=== PATIENT | male | born 1935 | race Caucasian/White ===

== ENCOUNTER → 2019-10-18 | Outpatient (CLI) | payer OTHER ==
[~2019-10-18] MED LIST: ADULT LOW DOSE81 MG PO; ALLER-TEC D 5-1 EACH; ALLER-TEC D 5-1 EACH PO; ALLERTEC; ALLOPURINOL 30300 M2; APAP500 PO; ASPIRIN325 PO; B-COMPLEX-VITA1 EACH PO; COLACE100 MG OR; COZAAR 25 MG TA25 M1 PO; FISHOIL PO; HYDROCODON-ACE1 EAC7 OR; LIVALO4 MG PO; LOVASTAT40 PO; MAPAP500 MG; METFORMIN HCL500 MG PO; METOCLOPRAMIDE10 MG PO; MUCINEX600 MG PO; MULTIVITAMINS PO; OMEPRAZOLE 20 M20 M1 PO; PERCOCET 5-3251 EACH PO; QUINU10 PD PO; QUINU5 PD PO; ROBAXIN 750 MG750 M1 OR; TOPROL XL50 MG PO; TYLENOL EX-STR500 M2 PO; XARELTO10 MG PO; XERALTO; ZOFRAN4 MG PO; ZYRTEC 10 MG TA10 M1 PO; [UNRECOGNIZED DRUG - OTHER] PO
== END ==
LOC: SJCVCIMAG 10:32
DX: I25.10 Atherosclerotic heart disease of native coronary artery without angina pectoris (principal); I65.23 Occlusion and stenosis of bilateral carotid arteries; E78.00 Pure hypercholesterolemia, unspecified; I10 Essential (primary) hypertension; E11.9 Type 2 diabetes mellitus without complications; Z95.1 Presence of aortocoronary bypass graft; I25.5 Ischemic cardiomyopathy; R19.8 Other specified symptoms and signs involving the digestive system and abdomen; Z87.891 Personal history of nicotine dependence

== ENCOUNTER → 2019-11-10 | Outpatient (CLI) | payer OTHER | END | disposition home or self-care (01) | LOC: SJCVCIMAG 08:01 | DX: K55.1 Chronic vascular disorders of intestine (principal); R19.8 Other specified symptoms and signs involving the digestive system and abdomen; E78.00 Pure hypercholesterolemia, unspecified; E11.22 Type 2 diabetes mellitus with diabetic chronic kidney disease; N18.4 Chronic kidney disease, stage 4 (severe); I48.92 Unspecified atrial flutter; Z98.890 Other specified postprocedural states; Z87.891 Personal history of nicotine dependence ==

== ENCOUNTER → 2020-02-03 | Outpatient (CLI) | payer OTHER | LOC: SJCVCIMAG 02-02 16:53 | DX: I48.91 Unspecified atrial fibrillation (principal); I25.10 Atherosclerotic heart disease of native coronary artery without angina pectoris; I25.5 Ischemic cardiomyopathy; E11.9 Type 2 diabetes mellitus without complications; Z79.4 Long term (current) use of insulin; Z87.891 Personal history of nicotine dependence ==

== ENCOUNTER → 2020-02-09 | Outpatient (CLI) | payer OTHER ==
[~2020-02-09] MED LIST changes: +ASPIR 8181 M1 PO; +FLONASE 0.05%50 MCG NARES
== END ==
LOC: SJCVC 11:02
DX: I25.10 Atherosclerotic heart disease of native coronary artery without angina pectoris (principal); I49.3 Ventricular premature depolarization; I65.23 Occlusion and stenosis of bilateral carotid arteries; I25.5 Ischemic cardiomyopathy; I48.0 Paroxysmal atrial fibrillation; I95.9 Hypotension, unspecified; E11.22 Type 2 diabetes mellitus with diabetic chronic kidney disease; I12.9 Hypertensive chronic kidney disease with stage 1 through stage 4 chronic kidney disease, or unspecified chronic kidney disease; N18.9 Chronic kidney disease, unspecified; Z95.1 Presence of aortocoronary bypass graft; Z96.659 Presence of unspecified artificial knee joint; Z79.899 Other long term (current) drug therapy; Z87.891 Personal history of nicotine dependence

== ENCOUNTER → 2020-02-11 | Outpatient (CLI) | payer OTHER ==
[~2020-02-11] VITALS: Ht 188 cm; Wt 99.8 kg
[2020-02-11 07:56] VITALS: BP 165/81
[2020-02-11 08:18] LABS: HEMATOCRIT 42.1 % (42.0-52.0); HEMOGLOBIN 14.1 gm/dL (14.0-18.0); MCH 29.7 pg (26.0-34.0); MCHC 33.5 g/dL (28.0-37.0); MCV 88.6 fL (80.0-100.0); RBC 4.76 mil/uL (4.50-6.00); RDW 17.9 % (10.5-14.5); WBC 7.4 thou/uL (4.0-11.0)
[2020-02-11 08:25] LABS: CALCIUM 9.2 mg/dL (8.5-10.1); CREATININE 1.7 mg/dL (0.7-1.3); POTASSIUM 4.2 mmol/L (3.5-5.1)
[2020-02-11 08:31] LABS: ALBUMIN 4.1 g/dL (3.4-5.0); TOTAL BILIRUBIN 1.3 mg/dL (<0.1-1.0)
--- NOTE | 2020-02-11 16:49 | CATHLAB ---
[facility] [place] [address] [place] [address] INVASIVE PROCEDURE REPORT Name: GABRIELLA RESENDEZ Room #: REG LAYTON Cotton.#: [id number] Admission: 02/11/20 Attend Phys: Daniel Kim MD Discharge: Date of : 37 Report #: [id number] THIS REPORT FOR: cc: Lino Sheets MD, Eric K. MD Mancuso, Gerald M. MD [facility] ~ APPROVED REPORT Study performed: 02/11/2020 10:55:59 Patient Details Patient Status: Out-Patient Room #: The patient is a 84 year-old male Event Personnel Lee Worthy Lobby Porter, Jeramie Salazar RN, Taurus Singer RT(R)(CV) Leo Domingo Nancy RTR, SEWER LINE REPAIRER Monitor Procedures Performed Art Access - R femoral artery* Left Heart Cath Coronaries, Bypass Grafts [id number] LHCCORCABG 10251 Initial Mod Sed Same Phys/QHP Gr5y 507960 02130 Mod Sed Same Phys/QHP Ea 919652 Hemostasis w/ Mynx Indication Positive stress test Procedure Narrative A SHEATH BRITE-TIP 6F X 11CM ([id number]) sheath was inserted into the RFA. Coronary angiography was performed using coronary diagnostic catheters. The right coronary system was accessed and visualized with a JR4 catheter. The left coronary system was accessed and visualized with a JL4 catheter. The left ventricle was accessed and visualized with a pigtail catheter. Left ventricular/Aortic Valve gradient assessed via catheter pullback. Closure device was deployed with a 6 Fr MYNX CONTROL 6F/7F L#[id number]. The patient tolerated the procedure well and there were no complications associated with the procedure. There was no hematoma. Intraoperative Conscious Sedation Sedation start time: 10:06 Case end Time: 12:11 Fentanyl 150 mcg Versed 3 mg Conscious sedation is a combined total for Carotid procedure and left [facility] [address] [place] [address] INVASIVE PROCEDURE REPORT Name: MALGABRIELLA Room #: REG JAVI Boogie#: [id number] Admission: 02/11/20 Attend Phys: Daniel Kim, Discharge: Date of : 37 Report #: [id number] heart cath. Fluoro time and dose are a combined total for Carotid procedure and left heart cath. Contrast is a combined total for Carotid procedure and left heart cath. Fluoro Time: 7.40 minutes Dose: DAP 43692.39 cGycm2 1426 mGy Contrast Type and Amount: Omnipaque 167 ml Hemodynamics The aortic pressure is 162/74 mmHg with a mean of 100 mmHg. The left ventricular pressure is 164/9 mmHg with a mean of mmHg. The left ventricular end diastolic pressure is 19 mmHg. 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 #2 the LAD D is filled via PHELAN graft this is a relatively small LAD and becomes atretic proximal to the apex. There is a CHAMP jump graft to an OM branch which is widely patent and filling a moderate size OM branch. #3 circumflex artery is high-grade disease the OM is occluded and filled via the great graft noted above or I should state the CHAMP jump graft. #4 dominant right coronary with mild irregularities 40 to 50% mid vessel PDA FLOR are essentially occluded and filled via a vein graft. #5 the SVG to the PDA fills a diffusely diseased PDA and retrograde fills the posterior lateral branch. Some competitive filling via the [place] system persists in the posterior lateral branch. No occlusive disease no indication for intervention Recommendations and plan: Limited contrast was utilized due to renal insufficiency. LV pressures were obtained but no LV gram. Ejection fraction near normal by noninvasive means. Discharge protocol from [facility] area. <ELECTRONICALLY SIGNED> By: Lee Worthy MD, FACC 02/11/20 1647 46 46 Lee Worthy MD, FACC /INF
== END | disposition home or self-care (01) ==
LOC: CATH 07:36
PROVIDERS: Internal Medicine Cardiovascular Disease
DX: R94.39 Abnormal result of other cardiovascular function study (principal); I25.810 Atherosclerosis of coronary artery bypass graft(s) without angina pectoris; I65.23 Occlusion and stenosis of bilateral carotid arteries; I70.1 Atherosclerosis of renal artery; I73.9 Peripheral vascular disease, unspecified; I70.8 Atherosclerosis of other arteries; I12.9 Hypertensive chronic kidney disease with stage 1 through stage 4 chronic kidney disease, or unspecified chronic kidney disease; E11.22 Type 2 diabetes mellitus with diabetic chronic kidney disease; N18.9 Chronic kidney disease, unspecified; I48.91 Unspecified atrial fibrillation; E78.00 Pure hypercholesterolemia, unspecified; Z98.890 Other specified postprocedural states; Z79.899 Other long term (current) drug therapy; Z96.653 Presence of artificial knee joint, bilateral; Z85.528 Personal history of other malignant neoplasm of kidney; Z95.1 Presence of aortocoronary bypass graft; Z90.49 Acquired absence of other specified parts of digestive tract; Z79.01 Long term (current) use of anticoagulants; Z88.8 Allergy status to other drugs, medicaments and biological substances; Z79.82 Long term (current) use of aspirin

== ENCOUNTER → 2020-02-29 | Outpatient (CLI) | payer OTHER | LOC: SJCVC 09:43 | PROVIDERS: ATTEND Internal Medicine Cardiovascular Disease | DX: I25.810 Atherosclerosis of coronary artery bypass graft(s) without angina pectoris (principal); I70.1 Atherosclerosis of renal artery; I48.0 Paroxysmal atrial fibrillation; Q60.0 Renal agenesis, unilateral; I25.5 Ischemic cardiomyopathy; I65.23 Occlusion and stenosis of bilateral carotid arteries; I12.9 Hypertensive chronic kidney disease with stage 1 through stage 4 chronic kidney disease, or unspecified chronic kidney disease; E11.22 Type 2 diabetes mellitus with diabetic chronic kidney disease; N18.9 Chronic kidney disease, unspecified; M19.90 Unspecified osteoarthritis, unspecified site; Z79.82 Long term (current) use of aspirin; Z79.84 Long term (current) use of oral hypoglycemic drugs; Z95.1 Presence of aortocoronary bypass graft; Z79.899 Other long term (current) drug therapy; Z87.891 Personal history of nicotine dependence ==

== ENCOUNTER → 2020-10-24 | Outpatient (CLI) | payer OTHER | LOC: SJCVCIMAG 10:24 | PROVIDERS: ATTEND Internal Medicine Cardiovascular Disease | DX: I65.23 Occlusion and stenosis of bilateral carotid arteries (principal); I25.10 Atherosclerotic heart disease of native coronary artery without angina pectoris; I11.9 Hypertensive heart disease without heart failure; I48.0 Paroxysmal atrial fibrillation; I25.5 Ischemic cardiomyopathy; E78.00 Pure hypercholesterolemia, unspecified; E11.9 Type 2 diabetes mellitus without complications; Z79.82 Long term (current) use of aspirin; Z79.899 Other long term (current) drug therapy; Z88.8 Allergy status to other drugs, medicaments and biological substances ==

== ENCOUNTER → 2021-05-03 | Outpatient (CLI) | payer OTHER | LOC: SJCVC 09:51 | PROVIDERS: ATTEND Internal Medicine Cardiovascular Disease | DX: I25.10 Atherosclerotic heart disease of native coronary artery without angina pectoris (principal); E11.9 Type 2 diabetes mellitus without complications; I48.0 Paroxysmal atrial fibrillation; I10 Essential (primary) hypertension; I25.5 Ischemic cardiomyopathy; N40.0 Benign prostatic hyperplasia without lower urinary tract symptoms; E78.00 Pure hypercholesterolemia, unspecified; Z95.1 Presence of aortocoronary bypass graft; Z79.82 Long term (current) use of aspirin; Z79.899 Other long term (current) drug therapy ==

== ENCOUNTER 2021-06-24 16:25 | Emergency (ER) | payer OTHER ==
[~2021-06-24] VITALS: Ht 188 cm; Wt 96.2 kg
[2021-06-24 17:01] LABS: HEMATOCRIT 41.3 % (42.0-52.0); HEMOGLOBIN 13.6 gm/dL (14.0-18.0); MCH 29.8 pg (26.0-34.0); MCHC 32.9 g/dL (28.0-37.0); MCV 90.6 fL (80.0-100.0); RBC 4.55 mil/uL (4.50-6.00); RDW 16.7 % (10.5-14.5); WBC 6.7 thou/uL (4.0-11.0)
[2021-06-24 17:09] LABS: CALCIUM 9.2 mg/dL (8.5-10.1); CREATININE 1.6 mg/dL (0.7-1.3); POTASSIUM 4.1 mmol/L (3.5-5.1)
[2021-06-24 17:19] LABS: ALBUMIN 3.7 g/dL (3.4-5.0); DIRECT BILIRUBIN 0.2 mg/dL (<0.1-0.2); TOTAL BILIRUBIN 0.9 mg/dL (0.2-1.0); TOTAL PROTEIN 7.3 g/dL (6.4-8.2)
[2021-06-24 18:17] LABS: URINE BILIRUBIN NEGATIVE (Negative); URINE BLOOD NEGATIVE (Negative); URINE CLARITY CLEAR; URINE COLOR YELLOW; URINE GLUCOSE-RANDOM* NEGATIVE (Negative); URINE KETONES NEGATIVE (Negative); URINE LEUKOCYTES-REFLEX NEGATIVE (Negative); URINE NITRITE-REFLEX NEGATIVE (Negative); URINE PROTEIN (DIPSTICK) NEGATIVE (Negative)
[2021-06-24 19:18] VITALS: BP 140/64
--- NOTE | 2021-06-25 07:34 | EKG ---
[facility] [place] [address] ELECTROCARDIOGRAM REPORT Name: GABRIELLA RESENDEZ [id number] Admission: 06/24/21 Attend Phys: Discharge: 06/24/21 Date of : 37 Report #: [id number] [facility] ED Test Date: 2021-06-24 Test Time: 16:37:08 Pat Name: GABRIELLA RESENDEZ Department: Room: Gender: M Tonger: : 1935 Requested By: Adilene Arevalo Order Number: [id number] MD: Houston Balderrama Measurements Intervals [place] Rate: 83 P: 33 DC: 186 QRS: -16 QRSD: 103 T: 61 QT: 383 QTc: 450 Interpretive Statements Sinus rhythm Multiform ventricular premature complexes Baseline wander in lead(s) V1,V2 Compared to ECG 02/16/2015 07:18:25 Ventricular premature complex(es) now present Electronically Signed On 06-25-2021 7:33:45 CDT by Houston Balderrama [email or web address] <ELECTRONICALLY SIGNED> By: Houston Balderrama MD, [facility] 06/25/21 0733 163 36 Houston Balderrama MD, [facility] /EPI
== END 2021-06-24 19:46 | disposition home or self-care (01) ==
LOC: ER 16:25
PROVIDERS: Emergency Medicine
DX: R42 Dizziness and giddiness (principal); I48.91 Unspecified atrial fibrillation; I12.9 Hypertensive chronic kidney disease with stage 1 through stage 4 chronic kidney disease, or unspecified chronic kidney disease; E11.22 Type 2 diabetes mellitus with diabetic chronic kidney disease; N18.9 Chronic kidney disease, unspecified; E78.00 Pure hypercholesterolemia, unspecified; Z85.528 Personal history of other malignant neoplasm of kidney; Z85.51 Personal history of malignant neoplasm of bladder; Z79.82 Long term (current) use of aspirin; Z79.84 Long term (current) use of oral hypoglycemic drugs; Z79.891 Long term (current) use of opiate analgesic; Z79.899 Other long term (current) drug therapy; Z88.5 Allergy status to narcotic agent; Z88.8 Allergy status to other drugs, medicaments and biological substances

== ENCOUNTER → 2021-07-25 | Outpatient (CLI) | payer OTHER | LOC: SJCVCIMAG 09:27 | PROVIDERS: ATTEND Internal Medicine Cardiovascular Disease | DX: R94.31 Abnormal electrocardiogram [ECG] [EKG] (principal); I49.1 Atrial premature depolarization; I25.10 Atherosclerotic heart disease of native coronary artery without angina pectoris; I65.23 Occlusion and stenosis of bilateral carotid arteries; I48.0 Paroxysmal atrial fibrillation; I70.1 Atherosclerosis of renal artery; E78.00 Pure hypercholesterolemia, unspecified; I77.9 Disorder of arteries and arterioles, unspecified; C64.9 Malignant neoplasm of unspecified kidney, except renal pelvis; I48.91 Unspecified atrial fibrillation; E11.22 Type 2 diabetes mellitus with diabetic chronic kidney disease; I12.9 Hypertensive chronic kidney disease with stage 1 through stage 4 chronic kidney disease, or unspecified chronic kidney disease; N18.9 Chronic kidney disease, unspecified; M19.90 Unspecified osteoarthritis, unspecified site; Z79.82 Long term (current) use of aspirin; Z79.899 Other long term (current) drug therapy; Z87.891 Personal history of nicotine dependence; Z88.8 Allergy status to other drugs, medicaments and biological substances ==

== ENCOUNTER → 2021-08-06 | Outpatient (CLI) | payer OTHER ==
[~2021-08-06] VITALS: Ht 188 cm; Wt 97.7 kg
[~2021-08-06] MED LIST changes: +PLAVIX 75 MG TA75 MG PO; +VITAMIN B COMP1 EACH PO
[2021-08-06 08:49] LABS: HEMATOCRIT 43.7 % (42.0-52.0); HEMOGLOBIN 14.5 gm/dL (14.0-18.0); MCH 29.6 pg (26.0-34.0); MCHC 33.2 g/dL (28.0-37.0); MCV 89.1 fL (80.0-100.0); RBC 4.9 mil/uL (4.50-6.00); RDW 16.5 % (10.5-14.5); WBC 7.8 thou/uL (4.0-11.0)
[2021-08-06 08:50] VITALS: BP 121/76
[2021-08-06 08:57] LABS: CALCIUM 9.1 mg/dL (8.5-10.1); CREATININE 1.5 mg/dL (0.7-1.3); POTASSIUM 3.7 mmol/L (3.5-5.1)
[2021-08-06 13:54] LABS: URINE BILIRUBIN NEGATIVE (Negative); URINE BLOOD NEGATIVE (Negative); URINE CLARITY CLEAR; URINE COLOR YELLOW; URINE GLUCOSE-RANDOM* NEGATIVE (Negative); URINE KETONES NEGATIVE (Negative); URINE LEUKOCYTES-REFLEX NEGATIVE (Negative); URINE NITRITE-REFLEX NEGATIVE (Negative); URINE PROTEIN (DIPSTICK) NEGATIVE (Negative); URINE UROBILINOGEN 0.2 E.U./dl (0.2-1.0)
== END | disposition home or self-care (01) ==
LOC: CATH 07:06
PROVIDERS: Surgery Vascular Surgery; ATTEND Nuclear Medicine Nuclear Cardiology
DX: I65.21 Occlusion and stenosis of right carotid artery (principal); I70.1 Atherosclerosis of renal artery; I73.9 Peripheral vascular disease, unspecified; M79.604 Pain in right leg; M79.605 Pain in left leg; I12.9 Hypertensive chronic kidney disease with stage 1 through stage 4 chronic kidney disease, or unspecified chronic kidney disease; E11.22 Type 2 diabetes mellitus with diabetic chronic kidney disease; N18.9 Chronic kidney disease, unspecified; I25.10 Atherosclerotic heart disease of native coronary artery without angina pectoris; I48.0 Paroxysmal atrial fibrillation; E78.00 Pure hypercholesterolemia, unspecified; I25.2 Old myocardial infarction; K21.9 Gastro-esophageal reflux disease without esophagitis; I42.9 Cardiomyopathy, unspecified; Z98.890 Other specified postprocedural states; Z85.528 Personal history of other malignant neoplasm of kidney; Z79.899 Other long term (current) drug therapy; Z85.828 Personal history of other malignant neoplasm of skin; Z95.1 Presence of aortocoronary bypass graft; Z87.891 Personal history of nicotine dependence; Z88.8 Allergy status to other drugs, medicaments and biological substances

== ENCOUNTER → 2021-08-24 | Outpatient (CLI) | payer OTHER ==
[~2021-08-24] MED LIST changes: +ALLOPURINOL 30300 M1 PO; +ASA81BEC PO; +PLAVIX 75 MG TA75 M1 PO
[2021-08-24 12:50] LABS: ABSOLUTE NEUTROPHILS 4.1 thou/uL (1.4-8.2); BASOPHILS 0.4 % (0.0-2.0); EOSINOPHILS 2.7 % (0.0-3.0); HEMATOCRIT 41.3 % (42.0-52.0); HEMOGLOBIN 13.6 gm/dL (14.0-18.0); LYMPHOCYTES 27.1 % (24.0-44.0); MCH 29.5 pg (26.0-34.0); MCHC 32.8 g/dL (28.0-37.0); MCV 89.8 fL (80.0-100.0); MONOCYTES 10.7 % (1.0-8.0); PLATELET COUNT 134 thou/uL (150-400); POLYS 59.1 % (36.0-66.0); WBC 6.9 thou/uL (4.0-11.0)
[2021-08-24 13:01] LABS: APTT 28.8 Seconds (24.5-32.8); PROTIME 10.9 Seconds (10.5-12.1)
[2021-08-24 13:07] LABS: URINE BILIRUBIN NEGATIVE (Negative); URINE BLOOD NEGATIVE (Negative); URINE CLARITY CLEAR; URINE COLOR YELLOW; URINE GLUCOSE-RANDOM* NEGATIVE (Negative); URINE KETONES NEGATIVE (Negative); URINE LEUKOCYTES-REFLEX NEGATIVE (Negative); URINE NITRITE-REFLEX NEGATIVE (Negative); URINE PROTEIN (DIPSTICK) NEGATIVE (Negative); URINE SPECIFIC GRAVITY 1.025 (1.005-1.035); URINE UROBILINOGEN 0.2 E.U./dl (0.2-1.0)
[2021-08-24 13:21] LABS: ALBUMIN 3.8 g/dL (3.4-5.0); CALCIUM 9.1 mg/dL (8.5-10.1); CREATININE 1.5 mg/dL (0.7-1.3); POTASSIUM 4.3 mmol/L (3.5-5.1); TOTAL BILIRUBIN 0.9 mg/dL (0.2-1.0); TOTAL PROTEIN 7.2 g/dL (6.4-8.2)
--- NOTE | 2021-08-25 07:04 | EKG ---
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: MARIXA : 1935 Requested By: Gabriella Hammond Order Number: [id number] MD: Alfonso Bo Measurements Intervals [place] Rate: 80 P: 74 MN: 188 QRS: -10 QRSD: 98 T: 62 QT: 402 QTc: 464 Interpretive Statements Sinus rhythm Abnormal R-wave progression, early transition Compared to ECG 06/24/2021 16:37:08 Ventricular premature complex(es) no longer present Electronically Signed On 08-25-2021 7:04:23 [facility]MER by Alfonso Bo [email or web address] <ELECTRONICALLY SIGNED> By: Alfonso Bo MD, [facility] 08/25/21 0704 11 11 Alfonso Bo MD, FACC /EPI
== END ==
LOC: PAC 10:48
PROVIDERS: Student in an Organized Health Care Education/Training Program; ATTEND Surgery Vascular Surgery
DX: Z01.812 Encounter for preprocedural laboratory examination (principal); M25.78 Osteophyte, vertebrae; Z20.822 Contact with and (suspected) exposure to COVID-19; Z98.890 Other specified postprocedural states

== ENCOUNTER 2021-08-30 06:06 | Inpatient (IN) | payer OTHER ==
[~2021-08-30] VITALS: Ht 188 cm; Wt 98.0 kg
[2021-08-30] VITALS (10 sets, daily range): BP systolic 75–156; BP diastolic 37–79
--- NOTE | 2021-08-30 13:21 | NUR ---
PT ARRIVED HERE VIA RN AND STAFF MEMBER ESCORT AT THE TIME OF ARRIVAL NO DRIPS RUNNING AT THE TIME. PT'S BELONGINGS WERE SAFE IN A STORAGE AND RESTORED TO THE WHO VERIFIED THAT ALL THE ITEMS WERE THERE. THE WAS PRESENT AT THE BEDSIDE FOR FEW MINUTES AND WENT HOME. PT AT THE TIME IS EXPERIENCING MINIMAL SURGICAL PAINS AND STATED TOLERANCE TO IT. STATED NO OTHER PAIN. SITE OF GROIN AND R CAROTID ARE C/D/I AND NO PRESENCE OF HEMATOMA. PATIENT HAS UNDERLYING DIABETES, STATED THAT ALL SENSES FROM BILATERAL EXTREMETY INCLUDING THE DISTAL FROM THE R GROIN WERE INTACT AND EQUAL BILATERALLY. PT GIVEN WATER/CHAPSTICK FOR COMFORT, NO OTHER ISSUES AT THIS TIME STATED FROM THE PATIENT.
[2021-08-31 00:14] VITALS: BP 95/41
[2021-08-31 05:57] LABS: HEMATOCRIT 35.3 % (42.0-52.0); HEMOGLOBIN 11.8 gm/dL (14.0-18.0); MCH 29.5 pg (26.0-34.0); MCHC 33.4 g/dL (28.0-37.0); MCV 88.3 fL (80.0-100.0); RBC 3.99 mil/uL (4.50-6.00); RDW 16.8 % (10.5-14.5); WBC 10.9 thou/uL (4.0-11.0)
[2021-08-31 06:10] LABS: CALCIUM 8.2 mg/dL (8.5-10.1); CREATININE 1.4 mg/dL (0.7-1.3)
[2021-08-31 08:37] VITALS: BP 108/53
[2021-08-31 10:37] VITALS: BP 98/45
--- NOTE | 2021-08-31 15:37 | NUR ---
Jared rounded on patient this afternoon. Plan is for him to stay in the ICU for now, will re-evaluate patient status in the morning. Per Jared, keep arterial line in throughout the night for now.
--- NOTE | 2021-08-31 16:25 | NUR ---
Case discussed in ICU rounds and chart reviewed. Pt is doing well with therapy and progressing postop toward goal to dc home tomorrow. He lives with his who is supportive and was indep prior to admission. He has a rwalker for home use as needed. PCP is Dr. Lino Sheets. Unit RN reports he is doing well and has been here visit today. No cm interventions indicated at this time.
--- NOTE | 2021-09-01 05:46 | NUR ---
PT STABLE THROUGHOUT THE NIGHT. REMAINS OFF LAMONTE OR CARDENE FOR BLOOD PRESSURE CONTROL. VITAL SIGNS STABLE. URINE OUTPUT ADEQUATE. PAIN CONTROLLED. ON ROOM AIR. WCTM.
--- NOTE | 2021-09-01 06:40 | NUR ---
GOT PATIENT UP TP CHAIR THIS AM AROUND 0600. PATIENT DID VERY WELL TRANSFERING FROM BED TO CHAIR. DID REPORT SOME MILD DIZZINESS THAT RESOLVED. BLOOD PRESSURE HAD A SIGNIFICANT DROP. ART LINE WAS ZEROED AND LEVELED APPROPRIATELY. DID NOT RECOVER SO PATIENT X2 ASSIST FOR SAFETY WAS TRANSFERED BACK TO BED. BLOOD PRESSURE IMMEDIATELY INCREAED BACK TO BASELINE MAP OVER 60.
[2021-09-01 08:34] VITALS: BP 67/32
[2021-09-01 11:41] VITALS: BP 98/45
[2021-09-01 12:17] VITALS: BP 98/45
--- NOTE | 2021-09-01 12:19 | NUR ---
pt alert and oriented X4. pt got up to sit on the chair,BP in high 70 systolic Pt complaining of light headedness. Pt blood pressure was still in sytolic high 80's. ASTER marks was notified. Cardio JUVENAL Johnson was notified. Per JUVENAL Johnson pt was given 500ml bolus. Pt's BP seems to respond well to the IVF. Dr. Hammond gave order for discharge. PT discharge home with his . Art line and IV was out prior to discharge and pressure was held at the site.
--- NOTE | 2021-09-03 08:51 | O ---
[facility] [place] [address] [place] [address] OPERATIVE REPORT Name: GABRIELLA RESENDEZ Room #: 248-P [facility] M.R.#: [id number] Admission: 08/30/21 Attend Phys: Gabriella Hammond MD Discharge: 09/01/21 Date of : 37 Report #: [id number] THIS REPORT FOR: cc: Lino Sheets MD, Eric K. MD Forman,Gabriella Anderson MD ~ DATE OF SERVICE: 08/30/2021 PREOPERATIVE DIAGNOSIS: Right carotid artery stenosis. POSTOPERATIVE DIAGNOSIS: Right carotid artery stenosis. OPERATION: Transcarotid arterial revascularization with intraoperative arteriograms (right). SURGEON: Dr. Gabriella Hammond and Dr. Daniel Kim. RESTAURANT SERVICE MANAGER: ASTER Crow (Jeremy). ANESTHESIA: General. INDICATIONS: The patient is an 86-year-old with an 85% right carotid artery stenosis. The left side has trivial disease. This has been followed for some time and has found a progress and stenosis is the indication. FINDINGS AND TECHNIQUE: After general anesthesia was established, a low collar incision was made on the right side. The heads of the sternocleidomastoid muscle were and the common carotid artery was identified and controlled. A carotid artery pursestring was placed. 10,000 units of heparin were given. Separately, the right common femoral vein was identified with ultrasound and entered with the arterial needle, followed by a guidewire. The venous end of the TCAR sheath was placed and secured. When the ACT was satisfactory, the common carotid was entered with the arterial needle followed by the guidewire and then the exchange catheter. A stiffer wire was placed and then the arterial end of the TCAR sheath was placed and secured. The TCAR arteriovenous fistula was constructed and good flow was ascertained through it. When the ACT was satisfactory, common carotid flow was occluded. An arteriogram was taken that showed the anatomy of the internal carotid. The guidewire was placed into it and then pre-stent dilatation was done with a 4 x 30 Cordis Aviator balloon. [facility] [address] [place] [address] OPERATIVE REPORT Name: GABRIELLA RESENDEZ Room #: 248-P [facility] M.R.#: [id number] Admission: 08/30/21 Attend Phys: Gabriella Hammond MD Discharge: 09/01/21 Date of : 37 Report #: [id number] A 9 x 40 Enroute stent was placed under fluoroscopic guidance and then post-stent dilatation was done with a 5 x 30 Aviator balloon. Two minutes were allowed to elapse and then a final arteriogram was taken. This showed good position of the stent and good flow through the internal carotid with good resolution of the lesion. The TCAR shunt was dismantled and antegrade flow was reestablished. The arterial end of the shunt was removed and the pursestring was secured. A second 6-0 stitch was placed in the common carotid. The venous end of the sheath was removed and pressure was applied to the groin. Protamine was given to reverse the heparin. Hemostasis was ascertained. When hemostasis was satisfactory, the wound was closed in layers. The patient was taken to the recovery area where his neurologic progress was monitored. All counts were reported as correct. <ELECTRONICALLY SIGNED> By: Gabriella Hammond MD 09/03/21 0851 [id number] [id number] Gabriella Hammond MD /nt
== END 2021-09-01 12:26 | disposition home or self-care (01) | DRG 35 ==
LOC: TBA 06:06 → PRE 09:03 → ICU 13:09 → PRE 14:19 → ICU 09-01 12:26
PROVIDERS: Physician Assistant; ADMIT Surgery Vascular Surgery; ATTEND Surgery Vascular Surgery
PROC: 037K3DZ Dilation of Right Internal Carotid Artery with Intraluminal Device, Percutaneous Approach (ICD-10-PCS; principal; 2021-08-30)
DX: I65.21 Occlusion and stenosis of right carotid artery (principal); D68.59 Other primary thrombophilia; I25.10 Atherosclerotic heart disease of native coronary artery without angina pectoris; E78.00 Pure hypercholesterolemia, unspecified; I48.0 Paroxysmal atrial fibrillation; N18.9 Chronic kidney disease, unspecified; E11.22 Type 2 diabetes mellitus with diabetic chronic kidney disease; M19.90 Unspecified osteoarthritis, unspecified site; I25.5 Ischemic cardiomyopathy; I70.1 Atherosclerosis of renal artery; I12.9 Hypertensive chronic kidney disease with stage 1 through stage 4 chronic kidney disease, or unspecified chronic kidney disease; Z88.8 Allergy status to other drugs, medicaments and biological substances; Z95.5 Presence of coronary angioplasty implant and graft; I25.2 Old myocardial infarction; Z90.5 Acquired absence of kidney; Z90.49 Acquired absence of other specified parts of digestive tract; Z98.42 Cataract extraction status, left eye; Z98.41 Cataract extraction status, right eye; Z95.1 Presence of aortocoronary bypass graft; Z79.899 Other long term (current) drug therapy
CPT/HCPCS: 10078; 47375; 48889; 50010; 50101; 50386; 50403; 50455; 51301; 52287; 54118; 56524; 56526; 56528; 56531; 62110; 62900; 65020; 70005

== ENCOUNTER → 2021-10-15 | Outpatient (CLI) | payer OTHER | LOC: SJCVCIMAG 09:20 | PROVIDERS: ATTEND Nuclear Medicine Nuclear Cardiology | DX: I65.22 Occlusion and stenosis of left carotid artery (principal); I70.1 Atherosclerosis of renal artery; I25.10 Atherosclerotic heart disease of native coronary artery without angina pectoris; I48.0 Paroxysmal atrial fibrillation; I10 Essential (primary) hypertension; I25.5 Ischemic cardiomyopathy; R09.89 Other specified symptoms and signs involving the circulatory and respiratory systems; N40.0 Benign prostatic hyperplasia without lower urinary tract symptoms; E78.00 Pure hypercholesterolemia, unspecified; E11.9 Type 2 diabetes mellitus without complications; Z95.1 Presence of aortocoronary bypass graft; Z79.82 Long term (current) use of aspirin; Z79.84 Long term (current) use of oral hypoglycemic drugs; Z79.899 Other long term (current) drug therapy ==

== ENCOUNTER → 2021-10-17 | Outpatient (CLI) | payer OTHER | LOC: SJCVC 11:29 | PROVIDERS: ATTEND Internal Medicine | DX: I12.9 Hypertensive chronic kidney disease with stage 1 through stage 4 chronic kidney disease, or unspecified chronic kidney disease (principal); E11.22 Type 2 diabetes mellitus with diabetic chronic kidney disease; N18.9 Chronic kidney disease, unspecified; I77.9 Disorder of arteries and arterioles, unspecified; I70.1 Atherosclerosis of renal artery; I48.0 Paroxysmal atrial fibrillation; I25.10 Atherosclerotic heart disease of native coronary artery without angina pectoris; E78.00 Pure hypercholesterolemia, unspecified; Z95.1 Presence of aortocoronary bypass graft; Z88.8 Allergy status to other drugs, medicaments and biological substances; Z79.82 Long term (current) use of aspirin; Z79.84 Long term (current) use of oral hypoglycemic drugs; Z79.899 Other long term (current) drug therapy; Z87.891 Personal history of nicotine dependence ==